=== PATIENT | female | born 2000 | race Caucasian/White ===

== ENCOUNTER 2022-10-28 21:25 | Outpatient (CLI) | payer OTHER ==
--- NOTE | 2022-10-29 00:28 | Ultrasound Report ---
PROCEDURE: Pelvic w/Transvaginal INDICATIONS: PELVIC PAIN TECHNIQUE: Real-time scanning was performed of the pelvic organs, with image documentation. Additional endovagi nal scanning was necessary due to incomplete visualization of the adnexal and endometrial structures by transabdominal scanning. COMPARISON: 01/30/2022 FINDINGS: Uterus: Uterus is anteverted and normal in size at 3.7 x 4 x 5.1 cm. The myometrium is heterogeneou s. The endometrium measures 13.3 mm in combined thickness. A 4 mm cystic focus can be seen adjacent to the endometrial stripe. No abnormal vascularity can be seen along the distal stripe. Mild motion can be seen within the endometrial stripe itself, as demonstrated on cine images. Ovaries: The right ovary measures 3.6 x 1.7 x 3.4 cm, with a calculated ovarian volume of 10.7 cc. There is a 1.4 cm right ovarian cyst seen, which is considered to be within physiologic limits. The left ovary measures 2.6 x 1.4 x 2.7 cm, with a calculated ovarian volume of 5.1 cc. The ovaries have a normal sonographic appearance. Less than 12 follicles can be seen in each ovary. No adnexal masses are seen. No cystic lesions measuring greater than 3 cm. Other: No pathologic free abdominal or pelvic fluid. IMPRESSION: No significant abnormality is seen to explain the patient's presenting history of pelvic pain. The previously seen left ovarian hemorrhagic cyst has resolved. There is a 4 mm cyst seen adjacent to the endometrial stripe. Reviewed by: Mitch Blair MD on 10/28/2022 11:27 PM ROB Approved by: Mitch Blair MD on 10/28/2022 11:27 PM ROB Station ID: [id number]
== END 2022-10-28 21:26 | disposition home or self-care (01) ==
LOC: DI 21:25
PROVIDERS: ATTEND Naturopath
DX: R10.2 Pelvic and perineal pain (principal); N85.8 Other specified noninflammatory disorders of uterus